=== PATIENT | female | born 1965 | race Caucasian/White ===

== ENCOUNTER 2017-12-02 13:55 | Observation (INO) | payer OTHER ==
--- NOTE | 2017-12-02 14:32 | ERPHSYRPT ---
- History of Present Illness Time Seen by Provider: 12/02/17 14:16 Source: patient Exam Limitations: no limitations Patient Subjective Stated Complaint: Pt states "I Am short of breath, my lymph nodes are inflamed and I think my toxoplasmosis is acting up again" Triage Nursing Assessment: Pt alert and oriented X 3, skin pwd. pt ambulates with assistance of 1, able to speak in clear full sentences. slightly tachypnic. Physician History: 52-year-old white female arrives with complaint that she short of breath she feels like her lymph nodes are flank she states this is been going on for a month. Patient has been seen by 2 nurse practitioner's and seen by Dr. Green for the same. She apparently has had a course of Augmentin, fluconazole, doxycycline which she took for 1 day she later was seen by Dr. Green who placed her on Levaquin for possible sinusitis. Patient apparently decided she didn't want to take the Levaquin because it has lots of side effects. 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 Past surgical history includes cholecystectomy, hysterectomy, thermal ablation, 2, tonsillectomy and adenoidectomy. Timing/Duration: other (symptoms for a month) Severity: moderate Modifying Factors: Improves With: nothing Associated Symptoms: shortness of breath, headaches, malaise, No nausea, No vomiting, No abdominal pain, No heartburn, No diaphoresis, No cough, No chills, No chest pain, No fever, No loss of appetite, No rash, No syncope, No seizure, No weakness Allergies/Adverse Reactions: hydrocodone [From Vicodin] Allergy (Verified 12/02/17 14:07) mental effects Home Medications: Albuterol Sulfate Mdi [Proair Hfa MDI] 1 puff IH DAILY 12/02/17 [History] Estradiol [Estradiol Transdermal Patch] 1 each TD UD 12/02/17 [History] Pantoprazole 20 mg [Protonix 20MG Tablet] 20 mg PO DAILY 12/02/17 [History ] Prednisone 20 mg [Deltasone 20 mg] 20 mg PO DAILY 12/02/17 [History] Hx Tetanus, Diphtheria Vaccination/Date Given: No Hx Influenza Vaccination/Date Given: No Hx Pneumococcal Vaccination/Date Given: No Immunizations Up to Date: Yes - Review of Systems Constitutional: No Fever, No Chills Eyes: No Symptoms Ears, Nose, & Throat: No Symptoms Respiratory: Dyspnea, No Cough, No Cyanosis, No Dyspnea on Exertion (FIERRO), No Stridor, No Wheezing Cardiac: No Chest Pain, No Edema, No Syncope Abdominal/Gastrointestinal: No Abdominal Pain, No Nausea, No Vomiting, No Diarrhea Genitourinary Symptoms: No Dysuria Musculoskeletal: No Back Pain, No Neck Pain Skin: No Rash Neurological: No Dizziness, No Focal Weakness, No Sensory Changes Psychological: No Symptoms Endocrine: No Symptoms All Other Systems: Reviewed and Negative - Past Medical History Pertinent Past Medical History: Yes Neurological History: No Pertinent History ENT History: Cataracts, Other Cardiac History: No Pertinent History Respiratory History: No Pertinent History Endocrine Medical History: No Pertinent History Musculoskeletal History: No Pertinent History GI Medical History: No Pertinent History History: No Pertinent History Psycho-Social History: No Pertinent History Female Reproductive Disorders: No Pertinent History Other Medical History: occular toxoplasmosis - Past Surgical History Past Surgical History: Yes Other Surgical History: claudine. hysterectomy. thermal ablasion. X 2. tonsils-adnoids. cataract - Social History Smoking Status: Never smoker Exposure to second hand smoke: Yes Drug Use: none Patient Lives Alone: No - Female History Hx Last Menstrual Period: hysterectomy Hx Now: No - Nursing Vital Signs Nursing Vital Signs: Initial Vital Signs Temperature 97.7 F 12/02/17 13:55 Pulse Rate 88 12/02/17 13:55 Respiratory Rate 20 12/02/17 13:55 Blood Pressure 163/102 12/02/17 13:55 O2 Sat by Pulse Oximetry 99 12/02/17 13:55 Pain Scale Pain Intensity 0 - Physical Exam General Appearance: no apparent distress, anxiety Eye Exam: PERRL/EOMI, eyes nml inspection Ears, Nose, Throat Exam: normal ENT inspection, TMs normal, pharynx normal, moist mucous membranes Neck Exam: normal inspection, non-tender, supple, full range of motion Respiratory Exam: normal breath sounds, lungs clear, No respiratory distress Cardiovascular Exam: regular rate/rhythm, normal heart sounds, normal peripheral pulses Gastrointestinal/Abdomen Exam: soft, normal bowel sounds, No tenderness, No mass Back Exam: normal inspection, normal range of motion, No CVA tenderness, No vertebral tenderness Extremity Exam: normal inspection, normal range of motion, pelvis stable Neurologic Exam: alert, oriented x 3, cooperative, normal mood/affect, nml cerebellar function, nml station & gait, sensation nml, No motor deficits Skin Exam: normal color, warm, dry, No rash SpO2 Interpretation: normal (100%) SpO2: 9 Oxygen Delivery: Room Air - Course Nursing assessment & vital signs reviewed: Yes EKG Interpreted by Me: RATE (83 bpm), Sinus Rhythm, Left [place] Deviation, Other ( EKG: Sinus rhythm 83 bpm left axis deviation inverted T waves in leads V3) - CT Exams Head CT Interpretation: Discussed w/radiologist (head CT: Normal head CT without contrast) Ordered Tests: Active Orders 24 hr Category Date Time Status Bedrest with BRP/BSC ROUTINE Activity 12/02/17 15:55 Active Admission/Status Order ROUTINE Care 12/02/17 15:55 Active Code Status Order ROUTINE Care 12/02/17 15:55 Active EKG-ER Only STAT Care 12/02/17 14:37 Completed IV Care Q6H Care 12/02/17 15:55 Active IV Insertion STAT Care 12/02/17 14:37 Completed Neuro Checks Q4H Care 12/02/17 15:55 Active Telemetry Q4H Care 12/02/17 15:55 Active Weight,Daily 0600 Care 12/02/17 15:55 Active Cardiac Diet Diet 12/02/17 Dinner Active HEAD WITHOUT CONTRAST [CT] Stat Exams 12/02/17 14:38 Completed CBC W DIFF AM.LAB Lab 12/03/17 04:00 Ordered CBC W DIFF Stat Lab 12/02/17 14:37 Completed CMP AM.LAB Lab 12/03/17 04:00 Ordered CMP Stat Lab 12/02/17 14:37 Completed CULTURE,URINE Stat Lab 12/02/17 16:10 Received TROPONIN Q3H Lab 12/02/17 15:00 Completed TROPONIN Q3H Lab 12/02/17 18:13 Received TROPONIN Q3H Lab 12/02/17 21:00 Ordered TROPONIN Q3H Lab 12/03/17 00:00 Ordered TROPONIN Q3H Lab 12/03/17 03:00 Ordered UA W/ MICROSCOPIC Stat Lab 12/02/17 16:10 Completed Respiratory Nebulizer STAT RT 12/02/17 14:39 Completed Transfer Order Routine Transfer 12/02/17 Completed Medication Summary Generic Name Dose Route Start Last Admin Trade Name Andrew PRN Reason Stop Dose Admin Acetaminophen 1,000 mg 12/02/17 18:09 12/02/17 18:23 Tylenol Extra Strength 500 Mg PO 01/01/18 18:08 1,000 mg Q4H PRN PRN Administration HEADACHE Albuterol Sulfate 2 puff 12/03/17 10:00 Proventil Common Canister IH 01/02/18 09:59 DAILY REBECA Aspirin 162 mg 12/03/17 10:00 Ecotrin 81 Mg PO 01/02/18 09:59 DAILY REBECA Sodium Chloride 1,000 mls @ 100 mls/hr 12/02/17 15:55 12/02/17 18:23 Sodium Chloride 0.9% 1000 Ml IV 01/01/18 15:54 100 mls/hr .Q10H REBECA Administration Pantoprazole Sodium 20 mg 12/03/17 10:00 Protonix 20mg Tablet PO 01/02/18 09:59 DAILY REBECA Prednisone 20 mg 12/03/17 10:00 Deltasone 20 Mg PO 01/02/18 09:59 DAILY REBECA Discontinued Medications Generic Name Dose Route Start Last Admin Trade Name Andrew PRN Reason Stop Dose Admin Albuterol/Ipratropium 3 ml 12/02/17 14:38 12/02/17 15:04 Duoneb 0.5-3 Mg/3 Ml Neb IH 12/02/17 14:39 3 ml STAT ONE Administration Albuterol/Ipratropium Confirm 12/02/17 15:02 Duoneb 0.5-3 Mg/3 Ml Neb Administered 12/02/17 15:03 Dose 3 ml IH .STK-MED ONE Aspirin 324 mg 12/02/17 15:36 12/02/17 15:43 Baby Aspirin 81 Mg Chew PO 12/02/17 15:37 324 mg STAT ONE Administration Aspirin Confirm 12/02/17 15:41 Baby Aspirin 81 Mg Chew Administered 12/02/17 15:42 Dose 324 mg .ROUTE .STK-MED ONE Potassium Chloride 40 meq 12/02/17 15:34 12/02/17 15:43 Klor Con 10 Meq PO 12/02/17 15:35 40 meq STAT ONE Administration Potassium Chloride Confirm 12/02/17 15:41 Klor Con 10 Meq Administered 12/02/17 15:42 Dose 40 meq PO .STK-MED ONE Lab/Rad Data: Laboratory Result Diagrams 12/02/17 14:37 12/02/17 14:37 Laboratory Results 12/02/17 12/02/17 12/02/17 Range/Units 15:00 14:37 14:37 WBC 16.5 H (4.0-10.5) K/mm3 RBC 4.79 (4.1-5.4) M/mm3 Hgb 14.4 (12.0-16.0) gm/dl Hct 42.3 (35-47) % MCV 88.3 (78-100) fl MCH 30.1 (26-32) pg MCHC 34.0 (32-36) g/dl RDW 12.8 (11.5-14.0) % Plt Count 278 (150-450) K/mm3 MPV 10.2 H (6-9.5) fl Gran % 64.3 (36.0-66.0) % Lymphocytes % 27.8 (24.0-44.0) % Monocytes % 6.9 (0.0-12.0) % Eosinophils % 0.8 (0.00-5.0) % Basophils % 0.2 (0.0-0.4) % Basophils # 0.03 (0-0.4) Sodium 139 (136-145) mEq/L Potassium 2.9 L* (3.5-5.1) mEq/L Chloride 100 (98-107) mEq/L Carbon Dioxide 30.2 (21-32) mEq/L Anion Gap 11.3 (5-15) MEQ/L BUN 16 (9-20) mg/dL Creatinine 0.97 (0.55-1.30) mg/dl Estimated GFR > 60 ML/MIN Glucose 120 H (70-110) MG/DL Calcium 9.2 (8.5-10.1) mg/dL Total Bilirubin 0.40 (0.2-1.0) mg/dL AST 27 (15-37) U/L ALT 72 (12-78) U/L Alkaline Phosphatase 79 (46-116) U/L Troponin I < 0.017 (0.000-0.056) ng/ml Serum Total Protein 7.2 (6.4-8.2) gm/dL Albumin 3.6 (3.4-5.0) g/dL - Progress Progress: improved Progress Note: 12/02/17 14:34 52-year-old white female who arrives with complaints of shortness of breath intermittent headaches and feels like her lymph nodes are enlarged symptoms for a month. She has been to to nurse practitioners a dentist and her family doctor. She has had a d-dimer which was negative a chest x-ray which was essentially negative a Monospot test which was negative. She has been on Augmentin, fluconazol, one day of doxycycline and one day of Levaquin. She apparently was placed on Levaquin by Dr. Green to treat possible sinusitis she did not like the side effect profile of the Levaquin so she did not take it. I have discussed with Dr. Green the patient patient does not appear to be in acute distress vitals are stable oxygenation is 100%. Dr. Green has requested that I order a CBC CMP UA EKG and a head CT. Also recommended we try an albuterol treatment, Will discuss this with the patient ordered the above noted tests. And proceed when results are available. 12/02/17 15:35 Patient really did not feeling any better after DuoNeb treatment. She has had a recent normal chest x-ray. EKG essentially normal she did have inverted T-wave lead 3. Troponin is normal. Patient did have hypokalemia. White count was 16.5. Patient has had a recent d-dimer I've discussed the patient's case with Dr. Green. Will place patient on telemetry obtain serial troponins. Patient will be given potassium 40 mEq orally. Will give patient aspirin 324 mg orally. - Departure Time of Disposition: 16:16 Departure Disposition: Observation Clinical Impression: Shortness of breath, Hypokalemia Condition: Fair Critical Care Time: No
[2017-12-02] MEDS ORDERED: DUONEB 0.5-3 MG/3 ml Neb IH ONE ×2 (14:38→15:02)
[2017-12-02 14:47] LABS: BASOPHIL % 0.2 % (0.0-0.4); Basophil (Absolute #) 0.03 (0-0.4); Eosinophil % 0.8 % (0.00-5.0); Eosinophil (Absolute #) 0.13 (0-0.5); Granulocyte Absolute (ANC) 10.59 (1.4-6.9); Granulocytes % 64.3 % (36.0-66.0); Hematocrit 42.3 % (35-47); Hemoglobin 14.4 gm/dl (12.0-16.0); Lymphocyte (Absolute #) 4.57 (1.0-4.6); Lymphocytes % 27.8 % (24.0-44.0); Mean Cell Volume 88.3 fl (78-100); Mean Corpuscular Hemoglobin 30.1 pg (26-32); Mean Platelet Volume 10.2 fl (6-9.5); Monocyte (Absolute #) 1.13 (0.0-1.3); Monocytes % 6.9 % (0.0-12.0); Platelet Count 278 K/mm3 (150-450); Red Blood Count 4.79 M/mm3 (4.1-5.4); Red Cell Distribution Width 12.8 % (11.5-14.0); White Blood Count 16.5 K/mm3 (4.0-10.5)
[2017-12-02 14:55] LABS: ALBUMIN 3.6 g/dL (3.4-5.0); ALKALINE PHOSPHATASE 79 U/L (46-116); ANION GAP 11.3 MEQ/L (5-15); BLOOD UREA NITROGEN 16 mg/dL (9-20); CHLORIDE 100 mEq/L (98-107); Calcium 9.2 mg/dL (8.5-10.1); Carbon Dioxide 30.2 mEq/L (21-32); Creatinine 1 0.97 mg/dl (0.55-1.30); EST GLOMERULAR FILTRATION RATE > 60 ML/MIN; Glucose 120 MG/DL (70-110); SGOT/AST 27 U/L (15-37); SGPT/ALT 72 U/L (12-78); SODIUM 139 mEq/L (136-145); Total Protein 7.2 gm/dL (6.4-8.2)
[2017-12-02 15:05] LABS: Potassium 2.9 mEq/L (3.5-5.1)
--- NOTE | 2017-12-02 15:08 | XRAY ---
Indication: Frontal headache 1 month. Intermittent vision disturbance. Multiple contiguous axial images obtained through the head without contrast. Comparison: None Normal appearing brain parenchyma, ventricles, and bony calvarium. Visualized paranasal sinuses and mastoid air cells are clear. Impression: Normal CT head without contrast exam. CT DI 69.38
[2017-12-02] MEDS ORDERED: Klor Con 10 MEQ PO ONE ×2 (15:34→15:41)
[2017-12-02] MEDS ORDERED: BABY ASPIRIN 81 MG CHEW PO ONE (15:36)
[2017-12-02] MEDS ORDERED: BABY ASPIRIN 81 MG CHEW ONE (15:41)
[2017-12-02 16:26] LABS: Appearance CLEAR (CLEAR); Bilirubin NEGATIVE (NEGATIVE); Blood TRACE NON-HEM Ery/ul (0-5); Glucose NEGATIVE (NEGATIVE); Ketones NEGATIVE (NEGATIVE); Leukocyte Esterase NEGATIVE (NEGATIVE); Nitrite NEGATIVE (NEGATIVE); Protein,Urine Dip NEGATIVE (Negative); Urobilinogen NORMAL mg/dL (0-1)
[2017-12-02 16:29] LABS: Epithelial Cells RARE /HPF (FEW)
[2017-12-02 16:30] LABS: Bacteria MODERATE /HPF (NEGATIVE)
[2017-12-02] MEDS ORDERED: ESTRADIOL 0.1 MG PO SCH (16:45)
[2017-12-02] MEDS ORDERED: MEDICATION INTERVENTION MC PRN (17:04)
[2017-12-02] MEDS: Sodium Chloride 0.9% 1000 ML 1,000 ML IV SCH (18:23)
[2017-12-02] MEDS: TYLENOL EXTRA STRENGTH 500 MG PO PRN ×2 (18:23→22:57)
[2017-12-03 03:21] LABS: BASOPHIL % 0.1 % (0.0-0.4); Basophil (Absolute #) 0.01 (0-0.4); Eosinophil % 0.1 % (0.00-5.0); Eosinophil (Absolute #) 0.01 (0-0.5); Granulocyte Absolute (ANC) 12.35 (1.4-6.9); Hematocrit 39.3 % (35-47); Hemoglobin 13.5 gm/dl (12.0-16.0); Lymphocyte (Absolute #) 2.43 (1.0-4.6); Lymphocytes % 15.6 % (24.0-44.0); Mean Cell Volume 88.3 fl (78-100); Mean Corpuscular Hemoglobin 30.3 pg (26-32); Mean Corpuscular Hgb Concent. 34.4 g/dl (32-36); Mean Platelet Volume 9.8 fl (6-9.5); Monocyte (Absolute #) 0.81 (0.0-1.3); Monocytes % 5.2 % (0.0-12.0); Platelet Count 275 K/mm3 (150-450); Red Blood Count 4.45 M/mm3 (4.1-5.4); Red Cell Distribution Width 12.8 % (11.5-14.0); White Blood Count 15.6 K/mm3 (4.0-10.5)
[2017-12-03] MEDS: Sodium Chloride 0.9% 1000 ML 1,000 ML IV SCH ×3 (03:28→23:51)
[2017-12-03 03:59] LABS: ALBUMIN 3.1 g/dL (3.4-5.0); ALKALINE PHOSPHATASE 71 U/L (46-116); ANION GAP 7.2 MEQ/L (5-15); BLOOD UREA NITROGEN 12 mg/dL (9-20); CHLORIDE 103 mEq/L (98-107); Calcium 8.6 mg/dL (8.5-10.1); Carbon Dioxide 29.9 mEq/L (21-32); Creatinine 1 0.86 mg/dl (0.55-1.30); EST GLOMERULAR FILTRATION RATE > 60 ML/MIN; Glucose 124 MG/DL (70-110); Potassium 4.1 mEq/L (3.5-5.1); SGOT/AST 27 U/L (15-37); SGPT/ALT 64 U/L (12-78); SODIUM 136 mEq/L (136-145); Total Protein 6.4 gm/dL (6.4-8.2)
[2017-12-03] MEDS: Protonix 20MG Tablet PO SCH (08:29)
[2017-12-03] MEDS: DELTASONE 20 MG PO SCH (08:30)
[2017-12-03] MEDS: ECOTRIN 81 MG PO SCH (08:30)
[2017-12-03] MEDS ORDERED: NON-FORMULARY ITEM (Albuterol Sulfate Mdi*** 1 PUFF) IH SCH (10:00)
[2017-12-03] MEDS ORDERED: PROVENTIL COMMON CANISTER IH SCH (10:00)
--- NOTE | 2017-12-03 12:05 | PCM.HP ---
History of Present Illness - Chief Complaint Chief Complaint: Shortness of Breath History of Present Illness: is a 52 year old female who c/o 8d of feeling SOB, 2d of intermittent chest squeezing,7-8/10. She was seen in my office, was being treated for sinusitis with prednisone which she thinks helps. Had a course of augmentin which is finished. I prescribed levaquin but she did not want to take that. She came to ER last night and CT head was wnl. Pulse ox has been normal throughout. Labs nl aside from K+ of 2.9 (corrected, this morning 4.1). She notes that she had some diarrhea with the augmentin. 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 She sees optho for this as it manifest in her R eye. 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 Early this morning she had an episode of sharp pain under her R rib that has resolved. - Review of Systems Respiratory: Short Of Breath Cardiac: Chest Pain (pressure) Abdominal/Gastrointestinal: Diarrhea (chronic, intermittent. recent episode wiht abx resolved) Psychological: Anxiety All Other Systems: Reviewed and Negative Medications & Allergies Home Medications: Home Medication List Albuterol Sulfate Mdi [Proair Hfa MDI] 1 puff IH DAILY 12/02/17 [History Confirmed 12/02/17] Estradiol [Estradiol Transdermal Patch] 1 each TD UD 12/02/17 [History Confirmed 12/02/17] Pantoprazole 20 mg [Protonix 20MG Tablet] 20 mg PO DAILY 12/02/17 [ History Confirmed 12/02/17] Prednisone 20 mg [Deltasone 20 mg] 20 mg PO DAILY 12/02/17 [History Confirmed 12/02/17] Allergies/Adverse Reactions: Allergies Allergy/AdvReac Type Severity Reaction Status Date / Time hydrocodone [From Vicodin] Allergy Verified 12/02/17 14:07 - Past Medical History Past Medical History: Yes Neurological History: No Pertinent History ENT History: Cataracts, Other Cardiac History: No Pertinent History Respiratory History: No Pertinent History Endocrine Medical History: No Pertinent History Musculoskelatal History: No Pertinent History GI Medical History: No Pertinent History History: No Pertinent History Pyscho-Social History: No Pertinent History Reproductive Disorders: No Pertinent History Comment: occular toxoplasmosis - Female History Hx Last Menstrual Period: hysterectomy Are you now?: No - Past Surgical History Past Surgical History: Yes Neuro Surgical History: No Pertinent History Cardiac History: No Pertinent History Respiratory Surgery: No Pertinent History GI Surgical History: No Pertinent History, Cholecystectomy Musculskeletal Surgical Hx: No Pertinent History Female Surgical History: Section Other Surgical History: claudine. hysterectomy. thermal ablasion. X 2. tonsils-adnoids. cataract - Social History Smoking Status: Never smoker Exposure to second hand smoke: Yes Alcohol: None Drug Use: none - Physical Exam Vital Signs: Vital Signs - 24 hr Temp Pulse Resp BP Pulse Ox 12/03/17 11:29 98.4 F 82 16 141/73 96 12/03/17 07:22 98.6 F 74 16 121/67 99 12/03/17 04:00 97.6 F 74 17 136/67 98 12/02/17 23:50 97.6 F 76 17 113/66 97 12/02/17 19:59 98.5 F 84 19 129/64 97 12/02/17 18:50 9 L 12/02/17 15:57 97.6 F 88 18 156/76 97 12/02/17 15:55 97 12/02/17 15:04 89 15 96 12/02/17 15:00 97.6 F 82 18 145/93 97 12/02/17 13:56 20 9 L 12/02/17 13:55 97.7 F 88 20 163/102 99 General Appearance: no apparent distress, alert Neurologic Exam: oriented x 3, cooperative Eye Exam: eyes nml inspection Ears, Nose, Throat Exam: moist mucous membranes Neck Exam: normal inspection, other (mild submandibular ttp bilat), No lymphadenopathy Respiratory Exam: normal breath sounds, lungs clear, No crackles/rales, No rhonchi, No wheezing Cardiovascular Exam: regular rate/rhythm, normal heart sounds, No murmur Gastrointestinal/Abdomen Exam: soft, normal bowel sounds, No tenderness, No distention, No mass, No guarding, No rebound Back Exam: normal inspection, No rash Extremity Exam: No pedal edema, No swelling Skin Exam: normal color, warm, dry, No rash Results - Labs Lab/Micro Results: Lab Results-Last 24 Hours 12/02/17 12/02/17 12/02/17 Range/Units 16:10 18:13 21:12 WBC (4.0-10.5) K/mm3 RBC (4.1-5.4) M/mm3 Hgb (12.0-16.0) gm/dl Hct (35-47) % MCV (78-100) fl MCH (26-32) pg MCHC (32-36) g/dl RDW (11.5-14.0) % Plt Count (150-450) K/mm3 MPV (6-9.5) fl Gran % (36.0-66.0) % Lymphocytes % (24.0-44.0) % Monocytes % (0.0-12.0) % Eosinophils % (0.00-5.0) % Basophils % (0.0-0.4) % Basophils # (0-0.4) Sodium (136-145) mEq/L Potassium (3.5-5.1) mEq/L Chloride (98-107) mEq/L Carbon Dioxide (21-32) mEq/L Anion Gap (5-15) MEQ/L BUN (9-20) mg/dL Creatinine (0.55-1.30) mg/dl Estimated GFR ML/MIN Glucose (70-110) MG/DL Calcium (8.5-10.1) mg/dL Total Bilirubin (0.2-1.0) mg/dL AST (15-37) U/L ALT (12-78) U/L Alkaline Phosphatase (46-116) U/L Troponin I < 0.017 < 0.017 (0.000-0.056) ng/ml Serum Total Protein (6.4-8.2) gm/dL Albumin (3.4-5.0) g/dL Ur Collection Type CLEAN CATCH Urine Color LT.YELLOW (YELLOW) Urine Appearance CLEAR (CLEAR) Urine pH 5.0 (5-6) Ur Specific [place] 1.010 (1.005-1.025) Urine Protein NEGATIVE (Negative) Urine Ketones NEGATIVE (NEGATIVE) Urine Blood TRACE NON-HEM (0-5) Brad/ul Urine Nitrite NEGATIVE (NEGATIVE) Urine Bilirubin NEGATIVE (NEGATIVE) Urine Urobilinogen NORMAL (0-1) mg/dL Ur Leukocyte Esterase NEGATIVE (NEGATIVE) Urine Microscopic RBC 0-2 (0-2) /HPF Ur Epithelial Cells RARE (FEW) /HPF Urine Bacteria MODERATE (NEGATIVE) /HPF Urine Culture Reflexed YES (NO) Urine Glucose NEGATIVE (NEGATIVE) mg/dL Specimen Received 12/02/17 1615 12/03/17 12/03/17 12/03/17 Range/Units 00:15 03:18 03:18 WBC 15.6 H (4.0-10.5) K/mm3 RBC 4.45 (4.1-5.4) M/mm3 Hgb 13.5 (12.0-16.0) gm/dl Hct 39.3 (35-47) % MCV 88.3 (78-100) fl MCH 30.3 (26-32) pg MCHC 34.4 (32-36) g/dl RDW 12.8 (11.5-14.0) % Plt Count 275 (150-450) K/mm3 MPV 9.8 H (6-9.5) fl Gran % 79.0 H (36.0-66.0) % Lymphocytes % 15.6 L (24.0-44.0) % Monocytes % 5.2 (0.0-12.0) % Eosinophils % 0.1 (0.00-5.0) % Basophils % 0.1 (0.0-0.4) % Basophils # 0.01 (0-0.4) Sodium (136-145) mEq/L Potassium (3.5-5.1) mEq/L Chloride (98-107) mEq/L Carbon Dioxide (21-32) mEq/L Anion Gap (5-15) MEQ/L BUN (9-20) mg/dL Creatinine (0.55-1.30) mg/dl Estimated GFR ML/MIN Glucose (70-110) MG/DL Calcium (8.5-10.1) mg/dL Total Bilirubin (0.2-1.0) mg/dL AST (15-37) U/L ALT (12-78) U/L Alkaline Phosphatase (46-116) U/L Troponin I < 0.017 < 0.017 (0.000-0.056) ng/ml Serum Total Protein (6.4-8.2) gm/dL Albumin (3.4-5.0) g/dL Ur Collection Type Urine Color (YELLOW) Urine Appearance (CLEAR) Urine pH (5-6) Ur Specific [place] (1.005-1.025) Urine Protein (Negative) Urine Ketones (NEGATIVE) Urine Blood (0-5) Brad/ul Urine Nitrite (NEGATIVE) Urine Bilirubin (NEGATIVE) Urine Urobilinogen (0-1) mg/dL Ur Leukocyte Esterase (NEGATIVE) Urine Microscopic RBC (0-2) /HPF Ur Epithelial Cells (FEW) /HPF Urine Bacteria (NEGATIVE) /HPF Urine Culture Reflexed (NO) Urine Glucose (NEGATIVE) mg/dL Specimen Received 12/03/17 Range/Units 03:18 WBC (4.0-10.5) K/mm3 RBC (4.1-5.4) M/mm3 Hgb (12.0-16.0) gm/dl Hct (35-47) % MCV (78-100) fl MCH (26-32) pg MCHC (32-36) g/dl RDW (11.5-14.0) % Plt Count (150-450) K/mm3 MPV (6-9.5) fl Gran % (36.0-66.0) % Lymphocytes % (24.0-44.0) % Monocytes % (0.0-12.0) % Eosinophils % (0.00-5.0) % Basophils % (0.0-0.4) % Basophils # (0-0.4) Sodium 136 (136-145) mEq/L Potassium 4.1 (3.5-5.1) mEq/L Chloride 103 (98-107) mEq/L Carbon Dioxide 29.9 (21-32) mEq/L Anion Gap 7.2 (5-15) MEQ/L BUN 12 (9-20) mg/dL Creatinine 0.86 (0.55-1.30) mg/dl Estimated GFR > 60 ML/MIN Glucose 124 H (70-110) MG/DL Calcium 8.6 (8.5-10.1) mg/dL Total Bilirubin 0.30 (0.2-1.0) mg/dL AST 27 (15-37) U/L ALT 64 (12-78) U/L Alkaline Phosphatase 71 (46-116) U/L Troponin I (0.000-0.056) ng/ml Serum Total Protein 6.4 (6.4-8.2) gm/dL Albumin 3.1 L (3.4-5.0) g/dL Ur Collection Type Urine Color (YELLOW) Urine Appearance (CLEAR) Urine pH (5-6) Ur Specific [place] (1.005-1.025) Urine Protein (Negative) Urine Ketones (NEGATIVE) Urine Blood (0-5) Brad/ul Urine Nitrite (NEGATIVE) Urine Bilirubin (NEGATIVE) Urine Urobilinogen (0-1) mg/dL Ur Leukocyte Esterase (NEGATIVE) Urine Microscopic RBC (0-2) /HPF Ur Epithelial Cells (FEW) /HPF Urine Bacteria (NEGATIVE) /HPF Urine Culture Reflexed (NO) Urine Glucose (NEGATIVE) mg/dL Specimen Received Microbiology 12/02/17 16:10 - Preliminary Clean Catch Midstream NO GROWTH TO DATE - Radiology Impressions Radiology Exams & Impressions: Radiology Procedures Category Date Time Status CHEST WITH CONTRAST [CT] Routine Exams 12/03/17 11:56 Ordered Assessment/Plan (1) SOB (shortness of breath) Current Visit: Yes Status: Acute Assessment & Plan: Will do CT chest with contrast, would look for fibrosis, scarring, or undetected infection. Code(s): R06.02 - SHORTNESS OF BREATH (2) Chest pain Current Visit: Yes Status: Acute Qualifiers: Chest pain type: unspecified Qualified Code(s): R07.9 - Chest pain, unspecified Assessment & Plan: Ruled out for MT. I think is related to the dyspnea. The sharp pain resolved, sounds musculoskeletal vs pleuritic. Code(s): R07.9 - CHEST PAIN, UNSPECIFIED (3) Hypokalemia Current Visit: Yes Status: Resolved Assessment & Plan: resolved. could have been due to diarrhea last week. Code(s): E87.6 - HYPOKALEMIA
[2017-12-03] MEDS: TYLENOL EXTRA STRENGTH 500 MG PO PRN (18:47)
--- NOTE | 2017-12-03 19:00 | XRAY ---
Indication: Short of breath. Toxoplasmosis. Multiple contiguous axial images obtained through the chest using 80 cc Isovue 370 contrast and PE protocol. Comparison: None There is satisfactory opacification of the pulmonary arteries to include the lobar and segmental branches. No filling defect or pulmonary embolus. Heart is not enlarged. Aorta is normal in course and caliber. Small right hilar calcified node. No pathologic mediastinal/hilar lymphadenopathy. 12 mm left thyroid hypodense nodule/cyst. Examination of the lung parenchyma demonstrates minimal bilateral dependent atelectasis and tiny right upper lobe calcified granuloma. No suspicious pulmonary mass, infiltrate, or effusion. Bony thorax intact. Limited upper abdomen demonstrates diffuse fatty liver and previous cholecystectomy. Impression: 1. Negative pulmonary embolus. No acute cardiopulmonary abnormalities. 2. Evidence for old granulomatous disease. 3. Left thyroid hypodense nodule/cyst. Thyroid sonogram may yield further information if clinically warranted. 4. Fatty liver. Comment: Preliminary interpretation was made by [facility]. No critical discrepancy. CTDI 15.30
[2017-12-04] MEDS: TYLENOL EXTRA STRENGTH 500 MG PO PRN ×2 (05:47→10:47)
[2017-12-04] MEDS: ECOTRIN 81 MG PO SCH (09:52)
[2017-12-04] MEDS: Protonix 20MG Tablet PO SCH (09:52)
[2017-12-04 11:29] VITALS: BP 117/72; PULSE 96; O2SAT 99
[2017-12-04] MEDS: DELTASONE 20 MG PO SCH (12:02)
[2017-12-04 12:30] LABS: Granulocyte Absolute (ANC) 8.11 (1.4-6.9); Hematocrit 39.1 % (35-47); Hemoglobin 13.2 gm/dl (12.0-16.0); Mean Cell Volume 88.9 fl (78-100); Mean Corpuscular Hgb Concent. 33.8 g/dl (32-36); Mean Platelet Volume 9.7 fl (6-9.5); Platelet Count 277 K/mm3 (150-450); Red Cell Distribution Width 12.8 % (11.5-14.0); White Blood Count 14.8 K/mm3 (4.0-10.5)
[2017-12-04 12:48] LABS: ANION GAP 10.9 MEQ/L (5-15); CHLORIDE 105 mEq/L (98-107); Calcium 8.7 mg/dL (8.5-10.1); Carbon Dioxide 27.6 mEq/L (21-32); Creatinine 1 0.79 mg/dl (0.55-1.30); EST GLOMERULAR FILTRATION RATE > 60 ML/MIN; Glucose 137 MG/DL (70-110); Potassium 3.5 mEq/L (3.5-5.1); SODIUM 140 mEq/L (136-145)
--- NOTE | 2017-12-04 13:35 | PCM.DS ---
Discharge Summary Date of Admission: 12/02/17 15:39 Admitting Physician: GERMÁN REECE Primary Care Provider: GERMÁN REECE Allergies Allergies hydrocodone [From Vicodin] Allergy (Verified 12/02/17 14:07) mental effects Hospital Summary - Hospital Course Hospital Course: Pt admitted through ER with 1 week of shortness of breath. She had been treated for sinusitis and possible early pneumonia with augmentin and prednisone. In the ER a CT head was neg for sinusitis. Troponins were negative x 5. She had good oxygen saturation on room air throughout her stay. A CT of the chest with contrast was negative for PE. It did find a thyroid nodule, 1.5 cm, that needs further workup. Today she is complaining of various migratory pains, such as in an old back injury and old shoulder injury. She still states that at rest she is fine, but with exertion or much talking she is short of air. Will plan stress test outpatient; would prefer lexiscan cardiolyte. Will continue on her prednisone at home and would like her to f/u with pulmonology outpatient within the next 1-2 weeks. Notably, pt has a history of toxoplasmosis uveitis. 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 In the meantime, I will have her on 2 weeks of bactrim DS. - Vitals & Intake/Output Vital Signs: Vital Signs Temperature 97.9 F 12/04/17 11:29 Pulse Rate 96 H 12/04/17 11:29 Respiratory Rate 20 12/04/17 11:29 Blood Pressure 117/72 12/04/17 11:29 O2 Sat by Pulse Oximetry 99 12/04/17 11:29 Intake & Output: Intake & Output 12/02/17 12/03/17 12/04/17 12/05/17 11:59 11:59 11:59 11:59 Intake Total 2619 3581 360 Output Total 1600 4380 Balance 1019 -799 360 Weight 65.9 kg 66.7 kg - Lab Result Diagrams: 12/04/17 12:23 12/03/17 03:18 Lab Results-Last 24 Hrs: Lab Results-Last 24 Hours 12/04/17 Range/Units 12:23 WBC 14.8 H (4.0-10.5) K/mm3 RBC 4.40 (4.1-5.4) M/mm3 Hgb 13.2 (12.0-16.0) gm/dl Hct 39.1 (35-47) % MCV 88.9 (78-100) fl MCH 30.0 (26-32) pg MCHC 33.8 (32-36) g/dl RDW 12.8 (11.5-14.0) % Plt Count 277 (150-450) K/mm3 MPV 9.7 H (6-9.5) fl Micro Results-Entire Visit: Microbiology 12/02/17 16:10 - Final Clean Catch Midstream NO GROWTH - Radiology Exams Ordered Rad Exams-Entire Visit: Radiology Procedures Category Date Time Status CHEST WITH CONTRAST [CT] Routine Exams 12/03/17 16:27 Completed Discharge Exam General Appearance: no apparent distress, alert, anxiety Neurologic Exam: oriented x 3, cooperative Skin Exam: normal color, warm, dry, No rash Respiratory Exam: normal breath sounds, lungs clear, No crackles/rales, No rhonchi, No wheezing Cardiovascular Exam: regular rate/rhythm, normal heart sounds, No murmur Extremity Exam: No pedal edema, No swelling Final Diagnosis/Problem List - Final Discharge Diagnosis/Problem (1) SOB (shortness of breath) Current Visit: Yes Status: Acute Assessment & Plan: Still unsure the etiology. Ruled out for AR, CT chest negative. Will have her do stress test outpatient. Home on bactrim and f/u with pulmonology. Stay on prednisone 10mg, 1-2 daily. (2) Chest pain Current Visit: Yes Status: Acute Assessment & Plan: Not currently complaining of pain, but has had sharp pain under her R rib and squeezing generalized pain at times. Will give ultram at home prn. (3) Hypokalemia Current Visit: Yes Status: Resolved Assessment & Plan: K+ 3.5 this morning - will send home on small dose of po potassium. - Discharge Disposition: Home, Self-Care Condition: Stable Prescriptions: New Sulfamethoxazole/Trimethoprim [Bactrim Ds Tablet] 1 each PO BID #28 tablet Prednisone 10 mg [Deltasone 10 mg] 10 mg PO DAILY PRN #40 tablet PRN Reason: Shortness Of Breath Aspirin EC 81 mg [Ecotrin 81 mg] 162 mg PO DAILY tablet.ec Potassium Chloride [K-Dur] 10 meq PO DAILY #30 tab.er.prt Tramadol HCl 50 mg [Ultram 50 mg] 50 mg PO TID PRN #35 tablet PRN Reason: Pain Continue Pantoprazole 20 mg [Protonix 20MG Tablet] 20 mg PO DAILY Albuterol Sulfate Mdi [Proair Hfa MDI] 1 puff IH DAILY Estradiol [Estradiol Transdermal Patch] 1 each TD UD Discontinued Prednisone 20 mg [Deltasone 20 mg] 20 mg PO DAILY Follow up with: GERMÁN REECE [Primary Care Provider] - Forms: Patient Portal Information
[2017-12-04 13:41] LABS: BLOOD UREA NITROGEN 14 mg/dL (9-20)
--- NOTE | 2017-12-04 13:51 | PCM.DCORD ---
- Discharge Disposition: Home, Self-Care Condition: Stable Prescriptions: New Sulfamethoxazole/Trimethoprim [Bactrim Ds Tablet] 1 each PO BID #28 tablet Prednisone 10 mg [Deltasone 10 mg] 10 mg PO DAILY PRN #40 tablet PRN Reason: Shortness Of Breath Aspirin EC 81 mg [Ecotrin 81 mg] 162 mg PO DAILY tablet.ec Potassium Chloride [K-Dur] 10 meq PO DAILY #30 tab.er.prt Tramadol HCl 50 mg [Ultram 50 mg] 50 mg PO TID PRN #35 tablet PRN Reason: Pain Continue Pantoprazole 20 mg [Protonix 20MG Tablet] 20 mg PO DAILY Albuterol Sulfate Mdi [Proair Hfa MDI] 1 puff IH DAILY Estradiol [Estradiol Transdermal Patch] 1 each TD UD Discontinued Prednisone 20 mg [Deltasone 20 mg] 20 mg PO DAILY Follow up with: GERMÁN REECE [Primary Care Provider] - Forms: Patient Portal Information
[2017-12-04 15:11] LABS: Eosinophil 2 % (0.00-3.0); Lymphocytes 36 % (24-44); Monocyte 7 % (0.0-12.0); Neutrophils 55 % (36.0-66.0); Platelet Estimate NORMAL (NORMAL); Total Cells Counted 100
== END 2017-12-04 15:20 | disposition home or self-care (01) ==
LOC: ED 13:55 → MED SURG 15:39
PROVIDERS: ADMIT Family Medicine; ATTEND Family Medicine
DX: R06.02 Shortness of breath (principal); R07.9 Chest pain, unspecified; E87.6 Hypokalemia; Z79.899 Other long term (current) drug therapy
CPT/HCPCS: 36000; 36415; 70450; 71260; 80048; 80053; 81000; 84484; 85025; 87086; 93005; 94640; 99285; G0378; A9270-GY

== ENCOUNTER 2019-10-20 08:47 | Emergency (ER) | payer OTHER ==
[2019-10-20 09:05] VITALS: O2SAT 97
[2019-10-20] MEDS ORDERED: Sodium Chloride 0.9% 1000 ML 1,000 ML IV STA (09:19)
[2019-10-20] MEDS ORDERED: Sodium Chloride 0.9% 1000 ML 1,000 ML ONE (09:22)
--- NOTE | 2019-10-20 09:22 | ERPHSYRPT ---
- History of Present Illness Time Seen by Provider: 10/20/19 09:21 Historian: patient Exam Limitations: no limitations Patient Subjective Stated Complaint: Pt stated that on her abdomen started hurting and she began having small amounts of diarrhea approx every hour , pain in right mid back and RLQ, nausea but denies vomiting, reports that whenever she eats anything that it comes right out in her bowels Triage Nursing Assessment: Pt walked into the ER, states that pains are sharp and they go away but has dull pain that stays, bowels sounds heard in all 4, pain with palpatation to the RLQ, hypertensive, has been drinking fluids Physician History: Pt stated that on her abdomen started hurting and she began having small amounts of diarrhea approx every hour, pain in right mid back and RLQ, nausea but denies vomiting, reports that whenever she eats anything that it comes right out in her bowels. denies any fever chills, nausea or vomiting Timing/Duration: day(s) (3-4 days) Associated Symptoms: diarrhea, nausea, weakness Allergies/Adverse Reactions: cephalexin Allergy (Verified 10/20/19 09:06) hydrocodone [From Vicodin] Allergy (Verified 10/20/19 09:06) mental effects Home Medications: Pantoprazole 20 mg [Protonix 20MG Tablet] 40 mg PO DAILY 12/02/17 [History ] Aspirin EC 81 mg [Ecotrin 81 mg] 81 mg PO DAILY 10/20/19 [History] Black Cohosh Root Extract [Black Cohosh] 80 mg PO DAILY 10/20/19 [History] Colesevelam HCl 1,875 mg PO BID 10/20/19 [History] Cyanocobalamin 500 Mcg [Vitamin B-12 500 MCG] 1,000 mcg PO DAILY 10/20/19 [History] Loperamide HCl 2 mg [Imodium 2 mg] 1 mg PO DAILY 10/20/19 [History] Potassium Chloride [K-Dur] 20 meq PO BID 10/20/19 [History] Hx Tetanus, Diphtheria Vaccination/Date Given: No Hx Influenza Vaccination/Date Given: No Hx Pneumococcal Vaccination/Date Given: No - Review of Systems Constitutional: No Fever, No Chills Eyes: No Symptoms Ears, Nose, & Throat: No Symptoms Respiratory: No Cough, No Dyspnea Cardiac: No Chest Pain, No Edema, No Syncope Abdominal/Gastrointestinal: Nausea, Diarrhea, No Abdominal Pain, No Vomiting Genitourinary Symptoms: No Dysuria Musculoskeletal: No Back Pain, No Neck Pain Skin: No Rash Neurological: No Dizziness, No Focal Weakness, No Sensory Changes Psychological: No Symptoms Endocrine: No Symptoms All Other Systems: Reviewed and Negative - Past Medical History Pertinent Past Medical History: Yes Neurological History: No Pertinent History ENT History: Cataracts, Other Cardiac History: No Pertinent History Respiratory History: No Pertinent History Endocrine Medical History: No Pertinent History Musculoskeletal History: No Pertinent History GI Medical History: No Pertinent History History: No Pertinent History Psycho-Social History: No Pertinent History Female Reproductive Disorders: No Pertinent History Other Medical History: occular toxoplasmosis, 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 hysterectomy. thermal ablasion. X 2. tonsils-adnoids. cataract - Social History Smoking Status: Never smoker Exposure to second hand smoke: Yes Drug Use: none Patient Lives Alone: No - Female History Hx Now: No (hysterectomy) - Nursing Vital Signs Nursing Vital Signs: Initial Vital Signs Temperature 97.7 F 10/20/19 08:52 Pulse Rate 100 H 10/20/19 08:52 Blood Pressure 160/100 10/20/19 08:52 O2 Sat by Pulse Oximetry 97 10/20/19 08:52 Pain Scale Pain Intensity 6 - Physical Exam General Appearance: no apparent distress, alert Eye Exam: PERRL/EOMI, eyes nml inspection Ears, Nose, Throat Exam: normal ENT inspection, pharynx normal, moist mucous membranes Neck Exam: normal inspection, non-tender, supple, full range of motion Respiratory Exam: normal breath sounds, lungs clear, No respiratory distress Cardiovascular Exam: regular rate/rhythm, normal heart sounds Gastrointestinal/Abdomen Exam: soft, No tenderness, No mass Back Exam: normal inspection, normal range of motion, No CVA tenderness, No vertebral tenderness Extremity Exam: normal inspection, normal range of motion, pelvis stable Neurologic Exam: alert, oriented x 3, cooperative, normal mood/affect, nml cerebellar function, sensation nml, No motor deficits Skin Exam: normal color, warm, dry SpO2: 97 - Course Nursing assessment & vital signs reviewed: Yes Ordered Tests: Active Orders 24 hr Category Date Time Status AMYLASE Stat Lab 10/20/19 09:25 Completed CBC W DIFF Stat Lab 10/20/19 09:25 Completed CMP Stat Lab 10/20/19 09:25 Completed CULTURE,URINE Stat Lab 10/20/19 09:25 Received LIPASE Stat Lab 10/20/19 09:25 Completed UA W/RFX UR CULTURE Stat Lab 10/20/19 09:25 Completed Medication Summary Discontinued Medications Generic Name Dose Route Start Last Admin Trade Name Freq PRN Reason Stop Dose Admin Sodium Chloride 1,000 mls @ 999 mls/hr 10/20/19 09:19 10/20/19 09:23 Sodium Chloride 0.9% 1000 Ml IV 10/20/19 10:19 999 mls/hr .Q1H1M STA Administration Sodium Chloride Confirm 10/20/19 09:22 Sodium Chloride 0.9% 1000 Ml Administered 10/20/19 09:23 Dose 1,000 mls @ ud .ROUTE .STK-MED ONE Ondansetron HCl Confirm 10/20/19 09:28 Zofran 4 Mg/2 Ml Vial Administered 10/20/19 09:29 Dose 4 mg .ROUTE .STK-MED ONE Ondansetron HCl 4 mg 10/20/19 09:28 10/20/19 09:29 Zofran 4 Mg/2 Ml Vial IV 10/20/19 09:29 4 mg STAT ONE Administration Trimethoprim/Sulfamethoxazole 1 tab 10/20/19 09:57 10/20/19 10:02 Bactrim Ds Tablet PO 10/20/19 09:58 1 tab STAT STA Administration Trimethoprim/Sulfamethoxazole Confirm 10/20/19 10:01 Bactrim Ds Tablet Administered 10/20/19 10:02 Dose 1 tab PO .STK-MED ONE Lab/Rad Data: Laboratory Result Diagrams 10/20/19 09:25 10/20/19 09:25 Laboratory Results 10/20/19 10/20/19 10/20/19 Range/Units 09:25 09:25 09:25 WBC (4.0-10.5) K/mm3 RBC (4.1-5.4) M/mm3 Hgb (12.0-16.0) gm/dl Hct (35-47) % MCV (78-100) fl MCH (26-32) pg MCHC (32-36) g/dl RDW (11.5-14.0) % Plt Count (150-450) K/mm3 MPV (6-9.5) fl Gran % (36.0-66.0) % Eos # (Auto) (0-0.5) Absolute Lymphs (auto) (1.0-4.6) Absolute Monos (auto) (0.0-1.3) Lymphocytes % (24.0-44.0) % Monocytes % (0.0-12.0) % Eosinophils % (0.00-5.0) % Basophils % (0.0-0.4) % Absolute Granulocytes (1.4-6.9) Basophils # (0-0.4) Sodium 139 (137-145) mmol/L Potassium 4.3 (3.5-5.1) mmol/L Chloride 107 (98-107) mmol/L Carbon Dioxide 26 (22-30) mmol/L Anion Gap 9.4 (5-15) MEQ/L BUN 12 (7-17) mg/dL Creatinine 0.93 (0.52-1.04) mg/dL Estimated GFR > 60.0 ML/MIN Glucose 118 H (74-106) mg/dL Calcium 10.1 (8.4-10.2) mg/dL Total Bilirubin 0.70 (0.2-1.3) mg/dL AST 44 H (14-36) U/L ALT 57 H (0-35) U/L Alkaline Phosphatase 88 (38-126) U/L Serum Total Protein 8.1 (6.3-8.2) g/dL Albumin 4.6 (3.5-5.0) g/dL Amylase 76 (30-110) U/L Lipase 60 (23-300) U/L Urine Color YELLOW (YELLOW) Urine Appearance SLIGHTLY CLOUDY (CLEAR) Urine pH 5.0 (5-6) Ur Specific [place] 1.021 (1.005-1.025) Urine Protein NEGATIVE (Negative) Urine Ketones NEGATIVE (NEGATIVE) Urine Blood MODERATE (0-5) Brad/ul Urine Nitrite NEGATIVE (NEGATIVE) Urine Bilirubin NEGATIVE (NEGATIVE) Urine Urobilinogen NEGATIVE (0-1) mg/dL Ur Leukocyte Esterase NEGATIVE (NEGATIVE) Urine WBC (Auto) 3-5 (0-5) /HPF Urine RBC (Auto) 6-10 (0-2) /HPF U Epithel Cells (Auto) MODERATE (FEW) /HPF Urine Bacteria (Auto) MODERATE (NEGATIVE) /HPF Urine Mucus (Auto) SLIGHT (NEGATIVE) /HPF Urine Culture Reflexed YES (NO) Urine Glucose NEGATIVE (NEGATIVE) mg/dL 10/20/19 Range/Units 09:25 WBC 7.6 (4.0-10.5) K/mm3 RBC 4.83 (4.1-5.4) M/mm3 Hgb 15.0 (12.0-16.0) gm/dl Hct 43.2 (35-47) % MCV 89.4 (78-100) fl MCH 31.1 (26-32) pg MCHC 34.7 (32-36) g/dl RDW 12.8 (11.5-14.0) % Plt Count 238 (150-450) K/mm3 MPV 9.9 H (6-9.5) fl Gran % 68.1 H (36.0-66.0) % Eos # (Auto) 0.12 (0-0.5) Absolute Lymphs (auto) 1.64 (1.0-4.6) Absolute Monos (auto) 0.64 (0.0-1.3) Lymphocytes % 21.6 L (24.0-44.0) % Monocytes % 8.4 (0.0-12.0) % Eosinophils % 1.6 (0.00-5.0) % Basophils % 0.3 (0.0-0.4) % Absolute Granulocytes 5.16 (1.4-6.9) Basophils # 0.02 (0-0.4) Sodium (137-145) mmol/L Potassium (3.5-5.1) mmol/L Chloride (98-107) mmol/L Carbon Dioxide (22-30) mmol/L Anion Gap (5-15) MEQ/L BUN (7-17) mg/dL Creatinine (0.52-1.04) mg/dL Estimated GFR ML/MIN Glucose (74-106) mg/dL Calcium (8.4-10.2) mg/dL Total Bilirubin (0.2-1.3) mg/dL AST (14-36) U/L ALT (0-35) U/L Alkaline Phosphatase (38-126) U/L Serum Total Protein (6.3-8.2) g/dL Albumin (3.5-5.0) g/dL Amylase (30-110) U/L Lipase (23-300) U/L Urine Color (YELLOW) Urine Appearance (CLEAR) Urine pH (5-6) Ur Specific [place] (1.005-1.025) Urine Protein (Negative) Urine Ketones (NEGATIVE) Urine Blood (0-5) Brad/ul Urine Nitrite (NEGATIVE) Urine Bilirubin (NEGATIVE) Urine Urobilinogen (0-1) mg/dL Ur Leukocyte Esterase (NEGATIVE) Urine WBC (Auto) (0-5) /HPF Urine RBC (Auto) (0-2) /HPF U Epithel Cells (Auto) (FEW) /HPF Urine Bacteria (Auto) (NEGATIVE) /HPF Urine Mucus (Auto) (NEGATIVE) /HPF Urine Culture Reflexed (NO) Urine Glucose (NEGATIVE) mg/dL - Progress Progress: improved, pain not gone completely Counseled pt/family regarding: lab results, diagnosis, need for follow-up - Departure Departure Disposition: Home Clinical Impression: Gastroenteritis and colitis, viral UTI (urinary tract infection) Qualifiers: Urinary tract infection type: acute cystitis Hematuria presence: without hematuria Qualified Code(s): N30.00 - Acute cystitis without hematuria Condition: Stable Critical Care Time: No Referrals: GERMÁN REECE [Primary Care Provider] - Instructions: Viral Gastroenteritis, Adult (DC), Urinary Tract Infection, Adult (DC) Additional Instructions: DIANNE HENSON ASHLIE was seen on 10/20/19 n the Emergency Room. At that time you were treated for an emergent condition, during your visit Laboratory, Radiology and/or other procedures may have been ordered. It is very important that you follow-up with your Primary Care Physician GERMÁN REECE within the next 24-48 hours to review your Emergency Room visit and the final results of testing that was ordered. Some test results such as Urine Cultures, Blood Cultures, and other cultures if ordered will not be finalized for 24-48 hours. If you do not have a Primary Care Provider please call the medical records department at [phone] to obtain a copy of your results or you may sign into our patient portal to obtain these results by visiting us @ [email or web address] and completing the following steps: 1. Click on the Patient Portal link 2. Click the Patient Self Enrollment Link to complete the enrollment form and entering your 3. Once the enrollment form is completed you will receive an email with a temporary ID and password at the email address you provided. 4. Next choose a user name and password. Your user name must be at least 4 characters long and your password must be at least 4 characters long. 5. Choose a security question from the list and provide your answer to the question. If you already have signed into the Health Portal you may access your Health Care Information 16/05 by the following steps: 1. Login to our website @ [email or web address] 2. Enter your original user name and password. FAQS The [facility] Health Portal is an online tool that contains your Lab Results, Radiology Reports, Visit History, Discharge Instructions and Health Summary Lab and Radiology Results will not be available for 72 hours on the portal. The Portal is a secure site, passwords are encryted and URLs are re-written so they cannot be copied and pasted. You and authorized family members are the only ones who can access your Portal. Also there is a timeout feature that protects your information if you leave the Portal page open. If you have technical difficulty please use the Contact Us link on the page this will allow you to submit any questions you have regarding the Portal or you may contact the Medical Record Department at [phone] ext [phone]. Discharge/Care Plan DIANNE HENSON was seen on 10/20/19 in the Emergency Room. The patient was counseled regarding Diagnosis,Lab results, Imaging studies, need for follow up and when to return to the Emergency Room. Prescriptions given: Discharge Note I have spoken with the patient and/or caregivers. I have explained the patient' s condition, diagnosis and treatment plan based on the information available to me at this time. I have answered the patient's and/or caregiver's questions and addressed any concerns. The patient and/or caregivers have as good understanding of the patient's diagnosis, condition and treatment plan as can be expected at this point. The vital signs have been stable. The patient's condition is stable and appropriate for discharge from the emergency department. The patient will pursue further outpatient evaluation with the primary care physician or other designated or consulting physician as outlined in the discharge instructions. The patient and/or caregivers are agreeable to this plan of care and follow-up instructions have been explained in detail. The patient and/or caregivers have received these instruction. The patient/and or caregivers are aware that any significant change in condition or worsening of symptoms should prompt an immediate return to this or the closest emergency department or call 911. Prescriptions: Smz/Tmp Ds Tablet [Bactrim Ds Tablet] 1 udtab PO BID #20 tablet Ondansetron ODT 4 MG [Zofran Odt 4 mg] 4 mg PO Q6H PRN PRN #10 tab.rapdis PRN Reason: Nausea/Vomiting
[2019-10-20] MEDS ORDERED: Zofran 4 MG/2 ML VIAL ONE (09:28)
[2019-10-20] MEDS ORDERED: Zofran 4 MG/2 ML VIAL IV ONE (09:28)
[2019-10-20 09:36] LABS: Absolute Neutrophil Ct (ANC) 5.16 (1.4-6.9); BASOPHIL % 0.3 % (0.0-0.4); Basophil (Absolute #) 0.02 (0-0.4); Eosinophil % 1.6 % (0.00-5.0); Eosinophil (Absolute #) 0.12 (0-0.5); Hematocrit 43.2 % (35-47); Lymphocyte (Absolute #) 1.64 (1.0-4.6); Lymphocytes % 21.6 % (24.0-44.0); Mean Cell Volume 89.4 fl (78-100); Mean Corpuscular Hemoglobin 31.1 pg (26-32); Mean Corpuscular Hgb Concent. 34.7 g/dl (32-36); Mean Platelet Volume 9.9 fl (6-9.5); Monocyte (Absolute #) 0.64 (0.0-1.3); Monocytes % 8.4 % (0.0-12.0); Neutrophil % 68.1 % (36.0-66.0); Platelet Count 238 K/mm3 (150-450); Red Blood Count 4.83 M/mm3 (4.1-5.4); Red Cell Distribution Width 12.8 % (11.5-14.0); White Blood Count 7.6 K/mm3 (4.0-10.5)
[2019-10-20 09:45] LABS: Appearance SLIGHTLY CLOUDY (CLEAR); Bacteria MODERATE /HPF (NEGATIVE); Bilirubin NEGATIVE (NEGATIVE); Blood MODERATE Ery/ul (0-5); Epithelial Cells MODERATE /HPF (FEW); Glucose NEGATIVE (NEGATIVE); Ketones NEGATIVE (NEGATIVE); Leukocyte Esterase NEGATIVE (NEGATIVE); Mucus SLIGHT /HPF (NEGATIVE); Nitrite NEGATIVE (NEGATIVE); Protein,Urine Dip NEGATIVE (Negative); Specific Gravity 1.021 (1.005-1.025); Urobilinogen NEGATIVE mg/dL (0-1)
[2019-10-20 09:49] LABS: ALBUMIN 4.6 g/dL (3.5-5.0); ALKALINE PHOSPHATASE 88 U/L (38-126); AMYLASE 76 U/L (30-110); ANION GAP 9.4 MEQ/L (5-15); BLOOD UREA NITROGEN 12 mg/dL (7-17); CHLORIDE 107 mmol/L (98-107); Calcium 10.1 mg/dL (8.4-10.2); Carbon Dioxide 26 mmol/L (22-30); Creatinine 1 0.93 mg/dL (0.52-1.04); Glucose 118 mg/dL (74-106); Potassium 4.3 mmol/L (3.5-5.1); SGOT/AST 44 U/L (14-36); SGPT/ALT 57 U/L (0-35); SODIUM 139 mmol/L (137-145); Total Protein 8.1 g/dL (6.3-8.2)
[2019-10-20] MEDS ORDERED: BACTRIM DS TABLET PO STA (09:57)
[2019-10-20] MEDS ORDERED: BACTRIM DS TABLET PO ONE (10:01)
[2019-10-20 10:28] VITALS: BP 129/84; PULSE 82
== END 2019-10-20 10:35 | disposition home or self-care (01) ==
LOC: ED 08:47
DX: A08.4 Viral intestinal infection, unspecified (principal); N30.00 Acute cystitis without hematuria; Z79.899 Other long term (current) drug therapy
CPT/HCPCS: 36415; 80053; 81001; 82150; 83690; 85025; 87086; 96374; 99284; J2405; A9270-GY

== ENCOUNTER 2021-08-22 22:26 | Emergency (ER) | payer BC, OTHER ==
[2021-08-22] MEDS ORDERED: TORAdol 30 mg Injection IM ONE (23:09)
--- NOTE | 2021-08-22 23:13 | ERPHSYRPT ---
- History of Present Illness Time Seen by Provider: 08/22/21 22:33 Source: patient Exam Limitations: no limitations Patient Subjective Stated Complaint: "i tripped off my deck." Triage Nursing Assessment: Patitent reported that she tripped forward off of her deck. She described an inversion and hyperextension type injury to the left ankle. Denied any head injury or loss of consciousness. Reported significant pain to the left ankle. No deformities. Pain to palpation of the anterior ankle and lateral malleolous. Pedal pulse present. Physician History: 56 years old female presented in the ER with chief complaint of left ankle and foot pain after she slipped on a wet deck steps and twisted left ankle leading to fall. Complaining of sharp shooting moderate intensity pain especially in the upper anterior foot and lateral ankle, more with movements and better with being still and applying ice. Did take Tylenol prior to arrival with no significant relief. No injury anywhere else. Method of Injury: fell, twisted Occurred: just prior to arrival Quality: sharpness Severity of Pain-Max: moderate Severity of Pain-Current: moderate Lower Extremities Pain: foot: left, ankle: left Modifying Factors: Improves With: immobilization, rest. Worsens With: movement Associated Symptoms: unable to bear weight Allergies/Adverse Reactions: cephalexin Allergy (Verified 08/22/21 22:37) hydrocodone [From Vicodin] Allergy (Verified 08/22/21 22:37) mental effects Home Medications: Pantoprazole 20 mg [Protonix 20MG Tablet] 40 mg PO DAILY 12/02/17 [Histor y] Aspirin EC 81 mg [Ecotrin 81 mg] 81 mg PO DAILY 10/20/19 [History] Colesevelam HCl 1,875 mg PO BID 10/20/19 [History] Cyanocobalamin 500 Mcg [Vitamin B-12 500 MCG] 1,000 mcg PO DAILY 10/20/19 [History] Potassium Chloride [K-Dur] 20 meq PO BID 10/20/19 [History] Hx Tetanus, Diphtheria Vaccination/Date Given: No Hx Influenza Vaccination/Date Given: No Hx Pneumococcal Vaccination/Date Given: No Travel Risk - International Travel Have you traveled outside of the country in past 3 weeks: No - Coronavirus Screening Close contact with a COVID-19 positive Pt in past 14-21 Days: No - Vaccine Status Have you recieved a Covid-19 vaccination: Yes 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 - Vaccination Dates Date of 2cond Vaccination (if applicable): 12/2020 - Review of Systems Constitutional: No Symptoms Eyes: No Symptoms Respiratory: No Symptoms Cardiac: No Symptoms Abdominal/Gastrointestinal: No Symptoms Musculoskeletal: Injury, Joint Pain Skin: No Symptoms Neurological: No Symptoms Endocrine: No Symptoms Hematologic/Lymphatic: No Symptoms - Past Medical History Pertinent Past Medical History: Yes Neurological History: No Pertinent History ENT History: Cataracts, Other Cardiac History: No Pertinent History Respiratory History: No Pertinent History Endocrine Medical History: No Pertinent History Musculoskeletal History: No Pertinent History GI Medical History: No Pertinent History History: No Pertinent History Psycho-Social History: No Pertinent History Female Reproductive Disorders: No Pertinent History Other Medical History: occular toxoplasmosis, 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 hysterectomy. thermal ablasion. X 2. tonsils-adnoids. cataract - Social History Smoking Status: Never smoker Exposure to second hand smoke: Yes Drug Use: none Patient Lives Alone: No - Female History Hx Now: No - Nursing Vital Signs Nursing Vital Signs: Initial Vital Signs Pulse Rate 86 08/22/21 22:27 Respiratory Rate 16 08/22/21 22:27 Blood Pressure 157/87 08/22/21 22:27 O2 Sat by Pulse Oximetry 98 08/22/21 22:27 Pain Scale Pain Intensity 7 - Physical Exam General Appearance: no apparent distress, alert Eyes, Ears, Nose, Throat Exam: normal ENT inspection Neck Exam: normal inspection, supple, full range of motion Cardiovascular/Respiratory Exam: normal breath sounds, regular rate/rhythm Back Exam: normal inspection, normal range of motion Legs Exam: bilateral leg: non-tender, normal inspection, normal range of motion Knees Exam: bilateral knee: non-tender, normal inspection, normal range of motion Ankle Exam: right ankle: non-tender, normal inspection, normal range of motion, no evidence of injury, left ankle: bone tenderness (Left lateral malleolus), limited range of motion, pain, soft tissue tenderness, swelling Foot Exam: right foot: non-tender, normal inspection, normal range of motion, no evidence of injury, left foot: bone tenderness (Proximal anterior foot), limited range of motion, pain, soft tissue tenderness Neuro/Tendon Exam: normal sensation, normal motor functions Mental Status Exam: alert, oriented x 3, cooperative Skin Exam: normal color SpO2 Interpretation: normal SpO2: 98 O2 Delivery: Room Air Ordered Tests: Active Orders 24 hr Category Date Time Status Ice Pack, Apply PRN Care 08/22/21 22:48 Active ANKLE (3 VIEWS) Stat Exams 08/22/21 22:48 Taken FOOT (MINIMUM 3 VIEWS) Stat Exams 08/22/21 22:50 Taken Medication Summary Discontinued Medications Generic Name Dose Route Start Last Admin Trade Name Freq PRN Reason Stop Dose Admin Ketorolac Tromethamine 30 mg 08/22/21 23:09 08/22/21 23:28 Ketorolac Tromethamine 30 Mg/Ml Inj IM 08/22/21 23:10 30 mg STAT ONE Administration Ketorolac Tromethamine Confirm 08/22/21 23:26 Ketorolac Tromethamine 30 Mg/Ml Inj Administered 08/22/21 23:27 Dose 30 mg .ROUTE .STK-MED ONE - Progress Progress: unchanged Progress Note: 08/22/21 23:34 No obvious fracture dislocation ankle and foot x-rays reviewed by me, official report is pending. Placed in a walking shoe, weightbearing as tolerated and outpatient podiatry follow-up recommended. Counseled pt/family regarding: diagnosis, need for follow-up, rad results - Departure Departure Disposition: Home Clinical Impression: Ankle sprain Qualifiers: Encounter type: initial encounter Involved ligament of ankle: unspecified ligament Laterality: left Qualified Code(s): S93.402A - Sprain of unspecified ligament of left ankle, initial encounter Condition: Stable Critical Care Time: No Referrals: GERMÁN ORTEGA [Primary Care Provider] - Follow Up with PCP/3 days SIA HERRERA DPM [ACTIVE STAFF] - (Tuesday for reevaluation) Instructions: Ankle Sprain (DC), Ankle Fracture (DC) Additional Instructions: Weightbearing as tolerated. Take Tylenol as needed for pain. Keep it elevated, apply ice. Follow-up with podiatry for reevaluation early next week.
[2021-08-22] MEDS ORDERED: TORAdol 30 mg Injection ONE (23:26)
[2021-08-23 00:31] VITALS: BP 134/76; PULSE 76; O2SAT 99
--- NOTE | 2021-08-23 09:45 | XRAY ---
Indication: Pain following fall. Comparison: None 3 view left ankle demonstrates tiny posterior/plantar heel spurs. No other bony, articular, or soft tissue abnormalities.
--- NOTE | 2021-08-23 09:47 | XRAY ---
Indication: Pain following fall. Comparison: None 3 nonweightbearing views left foot demonstrates tiny posterior/plantar heel spurs and tiny talonavicular accessory ossicle. No other bony, articular, or soft tissue abnormalities.
== END 2021-08-23 00:15 | disposition home or self-care (01) ==
LOC: ED 22:26
DX: S93.402A Sprain of unspecified ligament of left ankle, initial encounter (principal); W18.00XA Striking against unspecified object with subsequent fall, initial encounter; Y93.89 Activity, other specified; Y92.89 Other specified places as the place of occurrence of the external cause
CPT/HCPCS: 73610; 73630; 96372; 99284; J1885; L4386

== ENCOUNTER 2022-03-27 08:37 | Emergency (ER) | payer BC ==
[2022-03-27 08:59] VITALS: BP 116/70; PULSE 62; O2SAT 99
[2022-03-27] MEDS ORDERED: Reglan 10 MG/2 ML IV ONE (09:06)
[2022-03-27] MEDS ORDERED: Sodium Chloride 0.9% 1000 ML 1,000 ML IV STA (09:06)
[2022-03-27] MEDS ORDERED: SUBLIMAZE 100 MCG/2 ML IV ONE ×2 (09:06→11:09)
[2022-03-27] MEDS ORDERED: SUBLIMAZE 100 MCG/2 ML ONE ×2 (09:12→11:20)
[2022-03-27] MEDS ORDERED: Sodium Chloride 0.9% 1000 ML 1,000 ML ONE (09:12)
[2022-03-27] MEDS ORDERED: Reglan 10 MG/2 ML ONE (09:12)
[2022-03-27 09:27] LABS: Absolute Neutrophil Ct (ANC) 9.97 x10^3/uL (1.4-6.9); Basophil (Absolute #) 0.08 x10^3/uL (0-0.4); Eosinophil % 0.8 % (0.00-5.0); Hematocrit 38.3 % (35-47); Hemoglobin 12.4 g/dL (12.0-16.0); Lymphocyte (Absolute #) 1.91 x10^3/uL (1.0-4.6); Lymphocytes % 14.9 % (24.0-44.0); Mean Cell Volume 92.1 fL (78-100); Mean Corpuscular Hemoglobin 29.8 pg (26-32); Mean Corpuscular Hgb Concent. 32.4 g/dL (32-36); Mean Platelet Volume 10.1 fL (7.5-11.0); Monocyte (Absolute #) 0.71 x10^3/uL (0.0-1.3); Monocytes % 5.5 % (0.0-12.0); Neutrophil % 77.8 % (36.0-66.0); Platelet Count 200 x10^3/uL (150-450); Red Blood Count 4.16 x10^6/uL (4.1-5.4); Red Cell Distribution Width 12.2 % (11.5-14.0); White Blood Count 12.8 x10^3/uL (4.0-10.5)
--- NOTE | 2022-03-27 09:29 | ERPHSYRPT ---
- History of Present Illness Time Seen by Provider: 03/27/22 09:25 Historian: patient Exam Limitations: no limitations Patient Subjective Stated Complaint: diarrhea/abdominal pain Triage Nursing Assessment: Patient brought into ED via EMS and transferred to bed per self. Patient A+O X3. Patient's skin pink, warm and dry. Patient complains of diarrhea that started this am. Patient unable to get off of stool. Patient states she has blood in stool. Patient complains of constant sharp cramping pain 7/10. Patient complains of nausea. Patient states she has a hx of ischemic bowel. Physician History: Patient is 57-year-old female otherwise healthy ate at [employer] last night and since today approximately 2 hours ago in the morning she started having abdominal pain crampy in nature associated with bloody diarrhea she denies any fever chills but complaining of nausea abdominal pain generalized. She had a same type of symptoms approximately 2 to 3 years ago. She ate at [employer] last night. Other also ate with her but they did not have any symptoms. Timing/Duration: today Activities at Onset: none Quality: cramping Abdominal Pain Onset Location: generalized abdomen Pain Radiation: no radiation Severity of Pain-Max: moderate Severity of Pain-Current: moderate Modifying Factors: Improves With: nothing Associated Symptoms: diarrhea, No nausea, No vomiting Previous symptoms: same symptoms as today (2 years ago) Allergies/Adverse Reactions: cephalexin Allergy (Verified 03/27/22 08:46) hydrocodone [From Vicodin] Allergy (Verified 03/27/22 08:46) mental effects Home Medications: Pantoprazole 20 mg [Protonix 20MG Tablet] 40 mg PO DAILY 12/02/17 [History] Colesevelam HCl 1,875 mg PO BID 10/20/19 [History] Cyanocobalamin 500 Mcg [Vitamin B-12 500 MCG] 1,000 mcg PO DAILY 10/20/19 [History] Potassium Chloride [K-Dur] 20 meq PO BID 10/20/19 [History] Hx Tetanus, Diphtheria Vaccination/Date Given: No Hx Influenza Vaccination/Date Given: No Hx Pneumococcal Vaccination/Date Given: No Immunizations Up to Date: Yes Travel Risk - International Travel Have you traveled outside of the country in past 3 weeks: No - Coronavirus Screening Are you exhibiting any of the following symptoms?: No Close contact with a COVID-19 positive Pt in past 14-21 Days: No - Vaccine Status Have you recieved a Covid-19 vaccination: Yes 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 - Vaccination Dates Date of 2cond Vaccination (if applicable): 12/2020 - Review of Systems Constitutional: No Fever, No Chills Eyes: No Symptoms Ears, Nose, & Throat: No Symptoms Respiratory: No Cough, No Dyspnea Cardiac: No Chest Pain, No Edema, No Syncope Abdominal/Gastrointestinal: Abdominal Pain, Diarrhea, Hematochezia, No Nausea, No Vomiting Genitourinary Symptoms: No Dysuria Musculoskeletal: No Back Pain, No Neck Pain Skin: No Rash Neurological: No Dizziness, No Focal Weakness, No Sensory Changes Psychological: No Symptoms Endocrine: No Symptoms All Other Systems: Reviewed and Negative - Past Medical History Pertinent Past Medical History: Yes Neurological History: No Pertinent History ENT History: Cataracts, Other Cardiac History: No Pertinent History Respiratory History: No Pertinent History Endocrine Medical History: No Pertinent History Musculoskeletal History: No Pertinent History GI Medical History: No Pertinent History History: No Pertinent History Psycho-Social History: No Pertinent History Female Reproductive Disorders: No Pertinent History Other Medical History: occular toxoplasmosis, 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 hysterectomy. thermal ablasion. X 2. tonsils-adnoids. cataract - Social History Smoking Status: Never smoker Exposure to second hand smoke: Yes Drug Use: none Patient Lives Alone: No - Nursing Vital Signs Nursing Vital Signs: Initial Vital Signs Temperature 97.0 F 03/27/22 08:48 Pulse Rate 62 03/27/22 08:48 Respiratory Rate 18 03/27/22 08:48 Blood Pressure 116/70 03/27/22 08:48 O2 Sat by Pulse Oximetry 99 03/27/22 08:48 Pain Scale Pain Intensity 7 - Physical Exam General Appearance: no apparent distress, alert Eye Exam: PERRL/EOMI, eyes nml inspection Ears, Nose, Throat Exam: normal ENT inspection, pharynx normal, moist mucous membranes Neck Exam: normal inspection, non-tender, supple, full range of motion Respiratory Exam: normal breath sounds, lungs clear, No respiratory distress Cardiovascular Exam: regular rate/rhythm, normal heart sounds Gastrointestinal/Abdomen Exam: soft, tenderness, No distention, No mass, No guarding Pelvic Exam: not done Back Exam: normal inspection, normal range of motion, No CVA tenderness, No vertebral tenderness Extremity Exam: normal inspection, normal range of motion, pelvis stable Neurologic Exam: alert, oriented x 3, cooperative, normal mood/affect, nml cerebellar function, sensation nml, No motor deficits Skin Exam: normal color, warm, dry SpO2: 99 - Course Nursing assessment & vital signs reviewed: Yes - CT Exams Abdomen/Pelvis CT Interpretation: Tele-radiologist Report (descending colon colitis) Ordered Tests: Active Orders 24 hr Category Date Time Status ABDOMEN AND PELVIS W/0 CONTRAS [CT] Stat Exams 03/27/22 09:06 Taken AMYLASE Stat Lab 03/27/22 09:19 Completed CBC W DIFF Stat Lab 03/27/22 09:19 Completed CMP Stat Lab 03/27/22 09:19 Completed FECAL OCCULT BLOOD - SCREENING Stat Lab 03/27/22 09:38 Completed LIPASE Stat Lab 03/27/22 09:19 Completed UA W/RFX CULTURE Stat Lab 03/27/22 Ordered Medication Summary Discontinued Medications Generic Name Dose Route Start Last Admin Trade Name Freq PRN Reason Stop Dose Admin Fentanyl Citrate 50 mcg 03/27/22 09:06 03/27/22 09:16 Fentanyl Citrate 100 Mcg/2 Ml* Vial IV 03/27/22 09:07 50 mcg STAT ONE Administration Fentanyl Citrate Confirm 03/27/22 09:12 Fentanyl Citrate 100 Mcg/2 Ml* Vial Administered 03/27/22 09:13 Dose 100 mcg .ROUTE .STK-MED ONE Fentanyl Citrate 50 mcg 03/27/22 11:09 Fentanyl Citrate 100 Mcg/2 Ml* Vial IV 03/27/22 11:10 STAT ONE Sodium Chloride 1,000 mls @ 999 mls/hr 03/27/22 09:06 03/27/22 11:04 Sodium Chloride 0.9% 1000 Ml IV 03/27/22 10:06 Infused .Q1H1M STA Infusion Sodium Chloride Confirm 03/27/22 09:12 Sodium Chloride 0.9% 1000 Ml Administered 03/27/22 09:13 Dose 1,000 mls @ ud .ROUTE .STK-MED ONE Metronidazole 500 mg in 100 mls @ 200 mls/hr 03/27/22 09:40 03/27/22 11:03 Flagyl 500 Mg Ivpb IV 03/27/22 10:09 Infused STAT STA Infusion Metronidazole Confirm 03/27/22 09:43 Flagyl 500 Mg Ivpb Administered 03/27/22 09:44 Dose 500 mg in 100 mls @ ud IV .STK-MED ONE Metoclopramide HCl 10 mg 03/27/22 09:06 03/27/22 09:14 Metoclopramide Hcl 10 Mg/2 Ml Vial IV 03/27/22 09:07 10 mg STAT ONE Administration Metoclopramide HCl Confirm 03/27/22 09:12 Metoclopramide Hcl 10 Mg/2 Ml Vial Administered 03/27/22 09:13 Dose 10 mg .ROUTE .STK-MED ONE Lab/Rad Data: Laboratory Result Diagrams 03/27/22 09:19 03/27/22 09:19 Laboratory Results 03/27/22 03/27/22 03/27/22 Range/Units 09:38 09:19 09:19 WBC 12.8 H (4.0-10.5) x10^3/uL RBC 4.16 (4.1-5.4) x10^6/uL Hgb 12.4 (12.0-16.0) g/dL Hct 38.3 (35-47) % MCV 92.1 (78-100) fL MCH 29.8 (26-32) pg MCHC 32.4 (32-36) g/dL RDW 12.2 (11.5-14.0) % Plt Count 200 (150-450) x10^3/uL MPV 10.1 (7.5-11.0) fL Gran % 77.8 H (36.0-66.0) % Immature Gran % (Auto) 0.4 (0.00-0.4) % Nucleat RBC Rel Count 0.0 (0.00-0.1) % Eos # (Auto) 0.10 (0-0.5) x10^3/uL Immature Gran # (Auto) 0.05 H (0.00-0.03) x10^3u/L Absolute Lymphs (auto) 1.91 (1.0-4.6) x10^3/uL Absolute Monos (auto) 0.71 (0.0-1.3) x10^3/uL Absolute Nucleated RBC 0.00 (0.00-0.01) x10^3u/L Lymphocytes % 14.9 L (24.0-44.0) % Monocytes % 5.5 (0.0-12.0) % Eosinophils % 0.8 (0.00-5.0) % Basophils % 0.6 (0.0-0.4) % Absolute Granulocytes 9.97 H (1.4-6.9) x10^3/uL Basophils # 0.08 (0-0.4) x10^3/uL Sodium 141 (137-145) mmol/L Potassium 3.8 (3.5-5.1) mmol/L Chloride 109 H (98-107) mmol/L Carbon Dioxide 25 (22-30) mmol/L Anion Gap 11.3 (5-15) MEQ/L BUN 14 (7-17) mg/dL Creatinine 0.91 (0.52-1.04) mg/dL Estimated GFR > 60.0 ML/MIN Glucose 135 H (74-106) mg/dL Calcium 8.7 (8.4-10.2) mg/dL Total Bilirubin 0.30 (0.2-1.3) mg/dL AST 28 (14-36) U/L ALT 18 (0-35) U/L Alkaline Phosphatase 69 (38-126) U/L Serum Total Protein 6.2 L (6.3-8.2) g/dL Albumin 3.5 (3.5-5.0) g/dL Amylase 117 H (30-110) U/L Lipase 41 (23-300) U/L Stool Occult Blood POSITIVE A (NEGATIVE) - Progress Progress: improved, pain not gone completely Counseled pt/family regarding: lab results, diagnosis, need for follow-up, rad results - Departure Departure Disposition: Home Clinical Impression: Colitis presumed infectious Condition: Stable Critical Care Time: Yes Critical Care Time(excluding separately billable procedures): Critical 30-74 mi ns Referrals: GERMÁN ORTEGA [Primary Care Provider] - Follow Up with PCP/3 days Instructions: Colitis, Food Poisoning (DC) Additional Instructions: Discharge/Care Plan DIANNE HENSON ASHLIE was seen on 03/27/22 in the Emergency Room. The patient was counseled regarding Diagnosis,Lab results, Imaging studies, need for follow up and when to return to the Emergency Room. Prescriptions given: Discharge Note I have spoken with the patient and/or caregivers. I have explained the patient's condition, diagnosis and treatment plan based on the information available to me at this time. I have answered the patient's and/or caregiver's questions and addressed any concerns. The patient and/or caregivers have as good understanding of the patient's diagnosis, condition and treatment plan as can be expected at this point. The vital signs have been stable. The patient's condition is stable and appropriate for discharge from the emergency department. The patient will pursue further outpatient evaluation with the primary care physician or other designated or consulting physician as outlined in the discharge instructions. The patient and/or caregivers are agreeable to this plan of care and follow-up instructions have been explained in detail. The patient and/or caregivers have received these instruction. The patient/and or caregivers are aware that any significant change in condition or worsening of symptoms should prompt an immediate return to this or the closest emergency department or call 911. DIANNE HENSON ASHLIE was seen on 03/27/22 n the Emergency Room. At that time you were treated for an emergent condition, during your visit Laboratory, Radiology and/or other procedures may have been ordered. It is very important that you follow-up with your Primary Care Physician GERMÁN ORTEGA within the next 24-48 hours to review your Emergency Room visit and the final results of testing that was ordered. Some test results such as Urine Cultures, Blood Cultures, and other cultures if ordered will not be finalized for 24-48 hours. If you do not have a Primary Care Provider please call the medical records department at [phone] ext [phone] to obtain a copy of your results or you may sign into our patient portal to obtain these results by visiting us @ [email or web address] and completing the following steps: 1. Click on the Patient Portal link 2. Click the Patient Self Enrollment Link to complete the enrollment form and entering your 3. Once the enrollment form is completed you will receive an email with a temporary ID and password at the email address you provided. 4. Next choose a user name and password. Your user name must be at least 4 characters long and your password must be at least 4 characters long. 5. Choose a security question from the list and provide your answer to the question. If you already have signed into the Health Portal you may access your Health Care Information 16/05 by the following steps: 1. Login to our website @ [email or web address] 2. Enter your original user name and password. FAQS The [facility] Portal is an online tool that contains your Lab Results, Radiology Reports, Visit History, Discharge Instructions and Health Summary Lab and Radiology Results will not be available for 72 hours on the portal. The Portal is a secure site, passwords are encryted and URLs are re-written so they cannot be copied and pasted. You and authorized family members are the only ones who can access your Portal. Also there is a timeout feature that protects your information if you leave the Portal page open. If you have technical difficulty please use the Contact Us link on the page this will allow you to submit any questions you have regarding the Portal or you may contact the Medical Record Department at [phone] ext [phone]. ABDOMINAL PAIN 1. There are several different causes for abdominal pain, some of which may not be able to be identified on initial examination. 2. The important thing to remember is that bodily functions can change in a short period of time. If you notice any of the following symptoms, return to the emergency department or consult your doctor immediately: A. Worsening pain or no improvement in the next 12 hours. B. Increasing, severe abdominal pain C. Blood in stool D. Black stools E. Persistent vomiting F. Fever or chills or other symptoms Prescriptions: Dicyclomine HCl 20 mg [Bentyl 20 mg] 20 mg PO QID #20 tablet Metronidazole 500 mg [Flagyl 500 MG] 500 mg PO TID #21 tablet
[2022-03-27 09:35] LABS: ALBUMIN 3.5 g/dL (3.5-5.0); ALKALINE PHOSPHATASE 69 U/L (38-126); AMYLASE 117 U/L (30-110); ANION GAP 11.3 MEQ/L (5-15); BLOOD UREA NITROGEN 14 mg/dL (7-17); CHLORIDE 109 mmol/L (98-107); Calcium 8.7 mg/dL (8.4-10.2); Carbon Dioxide 25 mmol/L (22-30); Creatinine 1 0.91 mg/dL (0.52-1.04); EST GLOMERULAR FILTRATION RATE > 60.0 ML/MIN; Glucose 135 mg/dL (74-106); LIPASE 41 U/L (23-300); Potassium 3.8 mmol/L (3.5-5.1); SGOT/AST 28 U/L (14-36); SGPT/ALT 18 U/L (0-35); SODIUM 141 mmol/L (137-145); Total Protein 6.2 g/dL (6.3-8.2)
[2022-03-27] MEDS ORDERED: FLAGYL 500 MG IVPB 500 MG/100 ML BAG IV STA (09:40)
[2022-03-27] MEDS ORDERED: FLAGYL 500 MG IVPB 500 MG/100 ML BAG IV ONE (09:43)
--- NOTE | 2022-03-27 20:21 | XRAY ---
Indication: Bloody diarrhea. History ischemic colitis. Multiple contiguous axial images obtained through the abdomen and pelvis without contrast. Comparison: August 21, 2010. Lung bases demonstrates mild bilateral dependent atelectasis. No infiltrate or effusion. Heart not enlarged. Noncontrasted stomach and bowel loops nonobstructed with normal appendix. Descending and proximal sigmoid colon now demonstrates mild circumferential wall thickening and stranding favoring colitis. No free fluid/air. Interval cholecystectomy and hysterectomy. Remaining liver, pancreas, spleen, adrenal glands, kidneys, ureters, bladder, and aorta are unremarkable for noncontrast exam. Osseous structures intact. Impression: New descending and proximal sigmoid colitis. No complications. Comment: Preliminary interpretation made by [facility]. No critical discrepancy.
[2022-03-29 19:09] LABS: Adenovirus F40/41 Not Detected (Not Detected); Astrovirus Not Detected (Not Detected); Campylobacter Not Detected (Not Detected); Cryptosporidium Not Detected (Not Detected); Cyclospora cayetanensis Not Detected (Not Detected); Entamoeba histolytica Not Detected (Not Detected); Enteroaggregative E coli Not Detected (Not Detected); Enterpathogenic E coli Not Detected (Not Detected); Entertoxigenic E coli Not Detected (Not Detected); Giardia lamblia Not Detected (Not Detected); Norovirus GI/GII Not Detected (Not Detected); Plesiomonas shigelloides Not Detected (Not Detected); Rotavirus A Not Detected (Not Detected); Salmonella Not Detected (Not Detected); Shig-toxin-producing E coli Not Detected (Not Detected); Shigella/Enterinvasive E coli Not Detected (Not Detected); Vibrio Not Detected (Not Detected); Vibrio cholerae Not Detected (Not Detected); Yersinia enterocolitica Detected (Not Detected)
[2022-03-29 21:50] LABS: Sapovirus Not Detected (Not Detected)
== END 2022-03-27 11:53 | disposition home or self-care (01) ==
LOC: ED 08:37
DX: A09 Infectious gastroenteritis and colitis, unspecified (principal); R10.84 Generalized abdominal pain; R11.0 Nausea; Z79.899 Other long term (current) drug therapy
CPT/HCPCS: 36415; 74176; 80053; 82150; 82274; 83690; 85025; 87507; 96360; 96365; 96374; 96375; 96376; 99284; 99291; J3010; G0328